=== PATIENT | male | born 1945 | race Caucasian/White ===

== ENCOUNTER → 2019-01-17 | Outpatient (CLI) | payer MEDICARE, OTHER | LOC: CARD 12:56 | PROVIDERS: ATTEND Internal Medicine Interventional Cardiology | DX: I49.3 Ventricular premature depolarization (principal); I10 Essential (primary) hypertension; E78.2 Mixed hyperlipidemia; R42 Dizziness and giddiness; R00.1 Bradycardia, unspecified; E66.9 Obesity, unspecified | CPT/HCPCS: 93225; 93226; 93306 ==

== ENCOUNTER 2019-01-18 14:18 | Outpatient (RCR) | payer MEDICARE, OTHER | END 2019-04-18 | disposition home or self-care (01) | LOC: CARD 14:18 → EDUNIT# 14:30 | PROVIDERS: ATTEND Internal Medicine Interventional Cardiology | DX: I49.3 Ventricular premature depolarization (principal); R42 Dizziness and giddiness; R00.1 Bradycardia, unspecified ==

== ENCOUNTER 2019-02-07 10:16 | Outpatient (RCR) | payer MEDICARE, OTHER | END 2019-05-08 | disposition home or self-care (01) | LOC: CARD 10:16 → EDUNIT# 10:30 | PROVIDERS: ATTEND Internal Medicine Interventional Cardiology | DX: I49.3 Ventricular premature depolarization (principal); R42 Dizziness and giddiness; R00.1 Bradycardia, unspecified ==

== ENCOUNTER → 2019-04-04 | Outpatient (CLI) | payer MEDICARE, OTHER | LOC: CARD 09:49 | PROVIDERS: ATTEND Internal Medicine Interventional Cardiology | DX: I49.3 Ventricular premature depolarization (principal); I49.1 Atrial premature depolarization; R42 Dizziness and giddiness; R00.1 Bradycardia, unspecified | CPT/HCPCS: 93225; 93226 ==

== ENCOUNTER → 2019-07-04 | Outpatient (CLI) | payer MEDICARE, OTHER | LOC: CARD 11:16 | PROVIDERS: ATTEND Internal Medicine Interventional Cardiology | DX: I49.3 Ventricular premature depolarization (principal); E66.9 Obesity, unspecified; E78.2 Mixed hyperlipidemia; I10 Essential (primary) hypertension; R42 Dizziness and giddiness | CPT/HCPCS: 93225; 93226 ==

== ENCOUNTER → 2020-06-22 | Outpatient (CLI) | payer MEDICARE, OTHER | LOC: LAB FS 10:27 | PROVIDERS: ATTEND Orthopaedic Surgery | DX: Z01.812 Encounter for preprocedural laboratory examination (principal); Z20.828 Contact with and (suspected) exposure to other viral communicable diseases | CPT/HCPCS: 87635 ==

== ENCOUNTER → 2020-11-23 | Outpatient (CLI) | payer MEDICARE | LOC: CARD 12:21 | PROVIDERS: ATTEND Internal Medicine Cardiovascular Disease | DX: I11.9 Hypertensive heart disease without heart failure (principal); I34.0 Nonrheumatic mitral (valve) insufficiency | CPT/HCPCS: 93306 ==

== ENCOUNTER → 2020-12-31 | Outpatient (CLI) | payer MEDICARE, OTHER ==
[~2020-12-31] VITALS: Ht 172 cm; Wt 98.0 kg
[~2020-12-31] MED LIST: CATHETER FLUSH 10 ML SYR IV PRN
[2020-12-31 09:00] VITALS: BP 141/81
--- NOTE | 2020-12-31 11:10 | Cardiology Stress Test Report ---
Stress Test Report Date of Procedure/Referring: Date of Procedure: December 31, 2020 PCP Heriberto Collins MD Admitting Physician Robe Vazquez MD Indications: PVCs Baseline Heart Rate: 57 Baseline Blood Pressure: Blood Pressure Systolic: 141 Blood Pressure Diastolic: 81 Vital Signs Date Time Temp Pulse Resp B/P (MAP) Pulse Ox O2 Delivery O2 Flow Rate FiO2 12/31/20 09:00 57 141/81 (101) Baseline Vital Signs Vital Signs Date Time Temp Pulse Resp B/P (MAP) Pulse Ox O2 Delivery O2 Flow Rate FiO2 12/31/20 09:00 57 141/81 (101) Baseline EKG: Baseline EKG: NSR, PVCs Summary: After explaining the procedure and details to the patient, he signed the consent and was brought to the stress nuclear laboratory. Patient exercised on standard Jasmeet protocol, EKG, heart rate and blood pressure were monitored continuously, resting and stress doses of radio tracer were injected, imaging was acquired and reviewed in the short axis, horizontal long axis and vertical long axis views Patient was able to exercise for a total of 5:20 minutes on Jasmeet protocol, METs 7.1 Maximum heart rate 132 Maximum blood pressure 231/76 Stress EKG, Minimal nondiagnostic changes Recovery EKG, Return to baseline TID: 1.01 SSS: 4 SDS: 3 EF: 46 Conclusion: 1. Good exercise tolerance a total of 5 minutes 20 seconds on standard Jasmeet protocol, 7.1 METS achieving 89% of maximal expected heart rate 2. Severe hypertensive response to exercise with peak blood pressure 231/76 3. Frequent PVCs persisted through follow-up test 4. Minimal nondiagnostic EKG changes with exercise return to baseline during recovery 5. Diaphragmatic attenuation with mild decreased uptake involving the mid to apical inferior wall, apex and anterior apical segment with mild reversibility 6. Normal left ventricular size with mild hypokinesia at the inferior wall, EF 46% HERIBERTO COLLINS MD December 31, 2020 11:10
== END ==
LOC: CARD 08:00
PROVIDERS: ATTEND Internal Medicine Cardiovascular Disease
DX: I49.3 Ventricular premature depolarization (principal)
CPT/HCPCS: 78452; 93017; A9502

== ENCOUNTER 2021-01-16 06:50 | Day surgery (SDC) | payer MEDICARE, OTHER ==
[2021-01-16] VITALS (9 sets, daily range): BP systolic 116–164; BP diastolic 60–81
[~2021-01-16] VITALS: Ht 175 cm; Wt 98.0 kg
[~2021-01-16 06:50] MED LIST changes: -CATHETER FLUSH 10 ML SYR IV PRN; +HEParin (CATH LAB) 2,000 ML IV ONE; +LIDOCAINE 1% INJ 20 ML 20 ML VIAL ONE; +NS IV 1000 ML 1,000 ML ONE
[2021-01-16] MEDS ORDERED: NS IV 1000 ML 1,000 ML IV SCH ×2 (07:00→08:45)
[2021-01-16 07:16] LABS: HEMATOCRIT 40 % (40-54); HEMOGLOBIN 12.7 g/dL (13.3-17.7); MEAN CORPUSCULAR HEMOGLOBIN 30 pg (25-34); MEAN CORPUSCULAR HGB CONC 32 g/dL (32-36); MEAN CORPUSCULAR VOLUME 94 fL (80-99); MEAN PLATELET VOLUME 10.9 fL (9.0-12.2); PLATELET COUNT 216 10^3/uL (130-400); WHITE BLOOD COUNT 5.8 10^3/uL (4.3-11.0)
[2021-01-16 07:18] LABS: BILIRUBIN,URINE NEGATIVE (NEGATIVE); CLARITY,URINE CLEAR; COLOR,URINE YELLOW; GLUCOSE, URINE (UA) 2+ (NEGATIVE); KETONES,URINE NEGATIVE (NEGATIVE); LEUKOCYTE ESTERASE ,URINE NEGATIVE (NEGATIVE); NITRITE,URINE NEGATIVE (NEGATIVE); PH,URINE 5.5 (5-9); PROTEIN,URINE NEGATIVE (NEGATIVE)
[2021-01-16] MEDS ORDERED: LISI20TA26 PO (07:19)
[2021-01-16] MEDS ORDERED: ESOM20CA37 PO (07:19)
[2021-01-16] MEDS ORDERED: METF-397 PO ×3 (07:19→08:32)
[2021-01-16] MEDS ORDERED: HYDR25TA4 PO (07:19)
[2021-01-16] MEDS ORDERED: PIOG15TA67 PO (07:19)
[2021-01-16] MEDS ORDERED: GLIP10TA13 PO (07:19)
[2021-01-16] MEDS ORDERED: METO50TA15 PO (07:19)
[2021-01-16] MEDS ORDERED: ATOR80TA76 PO (07:19)
[2021-01-16] MEDS ORDERED: BETA1TAB15 PO (07:19)
[2021-01-16] MEDS ORDERED: ASPI-999 PO (07:19)
[2021-01-16 07:27] LABS: BACTERIA,URINE NEGATIVE /HPF; SQUAMOUS EPITHELIAL CELL,UR RARE /HPF
[2021-01-16] MEDS ORDERED: VERAPAMIL 5 MG/2 ML (CALAN) VIAL IV ONE (07:38)
[2021-01-16] MEDS ORDERED: fentaNYL INJ 100 MCG/2 ML AMP ONE (07:38)
[2021-01-16] MEDS ORDERED: MIDAZOLAM 5 MG/5 ML (VERSED) VIAL ONE (07:38)
[2021-01-16] MEDS ORDERED: HEParin 1000 UNIT/ML (10ML VIAL) FOR BOLUS ONE (07:38)
[2021-01-16] MEDS ORDERED: NITRO DRIP 25000 MCG/D5W 250 ML IV ONE (07:38)
[2021-01-16 07:47] LABS: ALBUMIN 4.5 GM/DL (3.2-4.5); BILIRUBIN,TOTAL 0.6 MG/DL (0.1-1.0); CALCIUM 9.4 MG/DL (8.5-10.1); CREATININE SERUM 1.31 MG/DL (0.60-1.30); POTASSIUM 4.1 MMOL/L (3.6-5.0); TOTAL PROTEIN 7.5 GM/DL (6.4-8.2)
--- NOTE | 2021-01-16 07:47 | Diagnostic Imaging Report ---
INDICATION: ABN STRESS TEST, DYSPNEA, PVCS COMPARISON: None FINDINGS: Single frontal view of the chest demonstrates normal heart size and pulmonary vascularity. The lungs are well aerated and clear. No large pleural effusion or pneumothorax is seen. The visualized osseous structures show no acute abnormalities. IMPRESSION: 1. No acute cardiopulmonary process. Dictated by: Dictated on workstation # [id number]
--- NOTE | 2021-01-16 07:48 | Conscious Sedation/ASA ---
Conscious Sedation Pre-Proced Time 07:48 ASA Score 3 For ASA 3 and 4: Consider anesthesia and medical clearance. Also, for patients with a history of failed moderate sedation consider anesthesia. Airway Lungs Heart ASA score ASA 1: a normal healthy patient ASA 2: a patient with a mild systemic disease (mid diabetes, controlled hypertension, obesity x ASA 3: a patient with a severe systemic disease that limits activity (angina, COPD, prior Myocardial infarction) ASA 4: a patient with an incapacitating disease that is a constant threat to life (CHF, renal failure) ASA 5: a moribund patient not expected to survive 24 hrs. (ruptured aneurysm) ASA 6: a declared brain- patient whose organs are being harvested. For emergent operations, add the letter E after the classification Mallampati Classification Grade 3 Sedation Plan Analgesia, Amnesia, Plan communicated to team members, Discussed options with patient/fam, Discussed risks with patient/fam The patient is an appropriate candidate to undergo the planned procedure, sedation, and anesthesia. The patient immediately re-assessed prior to indication. HERIBERTO NATARAJAN MD January 16, 2021 7:48 am
[2021-01-16 07:57] LABS: PROTHROMBIN TIME PATIENT 13.6 SEC (12.2-14.7)
--- NOTE | 2021-01-16 08:33 | Discharge Inst-Post CATH ---
Discharge Inst-CATH/EP Problems Reviewed?: Yes Post Cardiac Cath/EP D/C Inst Follow Up/Plan Hold Metformin for [address] Collins's office in 2 to 4 weeks <b>CARDIAC CATH/EP PROCEDURE DISCHARGE INSTRUCTIONS</b> ACTIVITY * Go Home directly and rest. * Limit activity of the leg (or wrist if it was used) for 7 days including aerobics, swimming, jogging, bicycling, etc. * Restrict stair-climbing for 7 days if possible, if not, climb up with your non-cath leg, then bring together on the same step. * Avoid lifting, pushing, pulling or excessive movement of the affected extremity for 7 days. * Customary sexual activity may be resumed after 2 days-use caution not to use a position that strains or causes pain to the affected extremity. * No driving for 24 hours. * NO SMOKING. * Avoid straining for bowel movements for 7 days. * Gentle walking on level ground is allowed. * Returning to work will depend on the type of procedure and the results. Your doctor will discuss this with you. CALL YOUR DOCTOR FOR ANY OF THE FOLLOWING: *If bleeding from the puncture site occurs- Apply gentle pressure to site with clean cloth and call your doctor or EMS. * If a knot or lump forms under the skin, increases in size, or causes pain. * If bruising appears to be worsening or moving further down your leg instead of disappearing. * Temperature above 101 F. CARE OF YOUR GROIN INCISION; * Bruising or purple discoloration of the skin near the puncture site is common. * You may shower only, no bathtub bathing for 5 days. Be careful to avoid slipping as your leg may feel stiff. * If a closure device was used on your femoral artery, please see the attached guide regarding care of the device and your leg. * Leave dressing on FOR 24 hours. CARE OF YOUR WRIST INCISION; * Bruising or purple discoloration of the skin near the puncture site is common. * You may shower. * DO NOT submerge wrist. * Leave dressing on FOR 24 hours. HERIBERTO COLLINS MD January 16, 2021 8:33 am
--- NOTE | 2021-01-16 08:37 | Cardiac Cath Report ---
Cardiac Cath Report Physician (s)/Information Assistant (s) Physician HERIBERTO NATARAJAN MD Pre-Procedure Diagnosis Pre-Procedure Diagnosis: Coronary artery disease Post-Procedure Note Procedure Start Date: January 16, 2021 Name of Procedure: Left heart catheterization Aortic arch angiogram Findings/Procedure Note PROCEDURE NOTE: 75 years old gentleman with history of hypertension, hyperlipidemia, diabetes mellitus, has been having palpitation with frequent PVCs. Had an abnormal stress test, scheduled for cardiac catheterization possible PTCA. After explaining the procedure to the patient, all pros and cons were explained, all questions were answered. The patient signed the consent and then he was placed on the cardiac catheterization laboratory. Groin was prepped SL fashion local anesthesia was used. Sheath placed in the right radial artery, [place] catheter was advanced to the left ventricular cavity, pressure was measured no left ventriculogram was done, pulled back and pressure was measured, intubated the left coronary system, multiple views were obtained, I tried to access the right coronary system without success, exchanged the catheter over a long J-wire and used Sergei right catheter, intubated the right coronary artery and angiogram was done. I had difficulty advancing the catheter and the wire through the brachiocephalic artery, the Sergei right was placed at the ostium of the brachiocephalic artery and angiogram to the aortic arch was done. At the end of the procedure the sheath was removed. Vascular band deployed FINDINGS: Hemodynamics LV 107/9, end-diastolic pressure of 9 Aorta 104/56 mean of 77 ANATOMY: Left Main is free of obstructive disease Left Anterior Descending has mild disease nonobstructive disease Left Circumflex has moderate disease, 40 to 50% stenosis in the proximal portion of the first obtuse marginal branch nonobstructive disease Right Coronary Artery has mild disease nonobstructive disease LV Gram was not done, pressure was measured Aorta evaluation done with aortic arch angiogram showing normal aortic arch, no dissection or aneurysm, slightly tortuous brachiocephalic artery, nonobstructive disease. Normal left carotid and left subclavian arteries CONCLUSION: 1. 40 to 50% stenosis in the proximal first obtuse marginal branch, nonobstructive disease. Otherwise mild coronary artery disease 2. Normal left ventricular end-diastolic pressure 3. Normal aortic arch and great vessels of the neck, slightly tortuous brachiocephalic artery DISCUSSION AND RECOMMENDATION: Continue to maximize medical therapy no intervention is warranted Anesthesia Type: Conscious Sedation Estimated blood loss (mL): 10 ml Contrast Amount: 44 ml Total Radiation Dose: 350 mmGy Post-Procedure Diagnosis Post-operative diagnosis: Chest pain Coronary artery disease Hypertension Hyperlipidemia HERIBERTO NATARAJAN MD January 16, 2021 8:37 am
== END 2021-01-16 12:00 ==
LOC: CATH 06:50 → SDC 08:47 → CATH 12:00
PROVIDERS: ATTEND Internal Medicine Cardiovascular Disease
DX: I25.10 Atherosclerotic heart disease of native coronary artery without angina pectoris (principal); I10 Essential (primary) hypertension; E78.5 Hyperlipidemia, unspecified; E11.9 Type 2 diabetes mellitus without complications; I49.3 Ventricular premature depolarization; I65.23 Occlusion and stenosis of bilateral carotid arteries; I71.4 Abdominal aortic aneurysm, without rupture; E78.2 Mixed hyperlipidemia; Z79.82 Long term (current) use of aspirin; Z79.84 Long term (current) use of oral hypoglycemic drugs; Z79.899 Other long term (current) drug therapy; Z96.651 Presence of right artificial knee joint
CPT/HCPCS: 36221; 71045; 80053; 80061; 81000; 85027; 85610; 85730; 87081; 93458; C1894; 36415

== ENCOUNTER → 2022-04-29 | Outpatient (CLI) | payer MEDICARE, OTHER ==
[~2022-04-29] MED LIST changes: +ASPI-999 PO; +ATOR80TA76 PO; +BETA1TAB15 PO; +ESOM20CA37 PO; +GLIP10TA13 PO; -HEParin (CATH LAB) 2,000 ML IV ONE; +HYDR25TA4 PO; -LIDOCAINE 1% INJ 20 ML 20 ML VIAL ONE; +LISI20TA26 PO; +METF-397 PO; +METO50TA15 PO; -NS IV 1000 ML 1,000 ML ONE; +PIOG15TA67 PO
--- NOTE | 2022-04-29 09:43 | Diagnostic Imaging Report ---
CLINICAL INDICATION: AAA. Exam: Ultrasound of the abdominal aorta. Comparison study: None. Findings: There is mild vascular irregularity of the abdominal aorta evidence of aneurysms. The maximum AP and transverse diameters for the upper, mid, and distal abdominal aorta are 1.8 cm x 2.0 cm, 2.7 cm x 2.7 cm, and 1.5 cm x 2.1 cm, respectively. The bilateral common iliac arteries have normal caliber with the right and left measuring 1.1 cm and 1 cm in greatest AP dimension. 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 2: There is no evidence of aneurysmal dilation of the abdominal aorta or bilateral common iliac arteries. Dictated by: Dictated on workstation # [id number]
== END ==
LOC: RAD FS 08:51
PROVIDERS: ATTEND Nurse Practitioner
DX: Z01.89 Encounter for other specified special examinations (principal); I77.811 Abdominal aortic ectasia
CPT/HCPCS: 76775